=== PATIENT | male | born 1965 | race African-American/Black ===

== ENCOUNTER 2020-04-08 11:55 | Outpatient (CLI) | payer OTHER ==
[~2020-04-08 11:55] MED LIST: NON ADHEREN1 BANDAGE TP
== END 2020-04-08 12:30 | disposition home or self-care (01) ==
LOC: MRI 11:55
PROVIDERS: ATTEND Orthopaedic Surgery
DX: M17.0 Bilateral primary osteoarthritis of knee (principal); M25.561 Pain in right knee; M25.562 Pain in left knee

== ENCOUNTER 2021-01-13 09:03 | Outpatient (CLI) | payer OTHER | END 2021-01-13 09:14 | disposition home or self-care (01) | LOC: RX STUDY 09:03 | PROVIDERS: ATTEND Internal Medicine Gastroenterology | DX: K22.8 Other specified diseases of esophagus (principal); R13.0 Aphagia ==

== ENCOUNTER 2023-06-29 06:34 | Day surgery (SDC) | payer OTHER ==
[2023-06-21 07:57] LABS: PH,URINE 5.5 (5.0-8.0); URINE APPEARANCE Clear; URINE BILIRRUBIN Negative (NEGATIVE); URINE BLOOD Negative; URINE COLOR Dark Yellow; URINE GLUCOSE Negative (NEGATIVE); URINE LEUKOCYTE Negative; URINE NITRATE Negative; URINE PROTEIN Negative (NEGATIVE); URINE UROBILINOGEN 0.2 E.U./dl
[2023-06-21 08:00] LABS: HEMATOCRIT 44.6 % (39.0-48.0); HEMOGLOBIN 15.1 g/dL (13-16.00); MEAN CELL VOLUME 88.7 fL (80.0-100.00); MEAN CORPUSCULAR HGB CONC 33.9 g/dl (32.0-36.0); PLATELET COUNT 224 K/uL (150-450); RED BLOOD COUNT 5.03 M/uL (4.00-6.00); RED CELL DISTRIBUTION WIDTH 12.8 % (11.5-14.5)
[2023-06-21 08:02] LABS: URINE BACTERIA 8.8 uL (0.0-1933); URINE RBC 3.8 uL (0.0-20.8)
[2023-06-21 08:11] LABS: URINE EPITHELIAL CELLS 1.2 uL (0.0-38.8)
[2023-06-21 08:26] LABS: ALBUMIN 4.1 gm/dL (3.4-5.0); BILIRUBIN TOTAL 0.74 mg/dL (0.3-1.2); CALCIUM 9.5 mg/dL (8.5-10.1); CREATININE SERUM 1.11 mg/dL (0.70-1.30); GFR 68.04; GLOBULINA 2.9 G/DL (2.4-3.5); PARTIAL THROMBOPLASTIN TIME 28.2 SECONDS (22.0-34.0); POTASSIUM 4.63 mEq/L (3.5-5.1); PROTHROMBIN TIME 10.5 SECONDS (9.0-11.5)
[~2023-06-29] VITALS: Ht 180.3 cm; Wt 83.5 kg
[~2023-06-29 06:34] MED LIST changes: +LIPITOR20 MG PO
[2023-06-29] MEDS ORDERED: LIDOCAINE HCL 1%/Epi 20ML VIAL IJ ONE ×2 (08:12→09:45)
[2023-06-29] MEDS ORDERED: BUPIVACAINE HCL/PF 0.5% 30ML ML ONE (08:12)
[2023-06-29] MEDS ORDERED: KETOROLAC TROMETHAMINE 30 MG VIAL ONE (08:12)
[2023-06-29] MEDS ORDERED: CEFAZOLIN SODIUM 1,000 MG VIAL ONE (08:21)
[2023-06-29] MEDS ORDERED: CEFAZOLIN SODIUM 1,000 MG VIAL IV ONE (09:45)
[2023-06-29] MEDS ORDERED: KETOROLAC TROMETHAMINE 30 MG VIAL IJ ONE (09:45)
[2023-06-29] MEDS ORDERED: KETOROLAC TROMETHAMINE 30 MG VIAL IV ONE (09:45)
[2023-06-29] MEDS ORDERED: BUPIVACAINE HCL/PF 0.5% 30ML ML IJ ONE (09:45)
[2023-06-29] MEDS ORDERED: SUGAMMADEX SODIUM 200 MG/2 ML VIAL IV ONE ×2 (10:40→10:45)
== END 2023-06-29 12:55 | disposition home or self-care (01) ==
LOC: CIR.AMB 06:34
PROVIDERS: ATTEND Orthopaedic Surgery
DX: M75.121 Complete rotator cuff tear or rupture of right shoulder, not specified as traumatic (principal); E78.5 Hyperlipidemia, unspecified; Z20.822 Contact with and (suspected) exposure to COVID-19